=== PATIENT | female | born 1945 | race Caucasian/White ===

== ENCOUNTER 2017-02-21 18:26 | Inpatient (IN) | payer OTHER ==
[~2017-02-21] VITALS: Ht 165.1 cm; Wt 62.8 kg
[2017-02-21 19:29] LABS: BASOPHIL % 0.4 % (0-2); PLATELET COUNT 205 x10^3mcL (130-400); RED CELL DISTRIBUTION WIDTH 12.6 % (11.5-14.5)
[2017-02-21 19:36] LABS: CALCIUM 8.7 mg/dL (8.5-10.1); CARBON DIOXIDE 37.2 mmol/L (21-32); CHLORIDE SERUM 103 mmol/L (98-107); CREATININE SERUM 0.8 mg/dL (0.6-1.0); GLUCOSE SERUM 106 mg/dL (74-106); POTASSIUM SERUM 3.5 mmol/L (3.5-5.1); SODIUM SERUM 144 mmol/L (136-145)
[2017-02-21 19:41] LABS: ALKALINE PHOSPHATASE 86 U/L (46-116); ALT/SGPT 25 U/L (14-59); AST/SGOT 29 U/L (15-37); BILIRUBIN TOTAL 0.3 mg/dL (0.20-1.00); TOTAL PROTEIN, SERUM 7.3 g/dL (6.4-8.2)
[2017-02-21 19:43] LABS: ALBUMIN 2.7 g/dL (3.4-5.0)
[2017-02-21] MEDS ORDERED: CLARITIN10 MG PO (22:40)
[2017-02-21] MEDS ORDERED: PRISTIQ50 M1 PO (22:40)
[2017-02-21] MEDS ORDERED: FUROSEMIDE20 MG PO (22:40)
[2017-02-21] MEDS ORDERED: METHADONE HCL5 MG PO (22:41)
[2017-02-21] MEDS ORDERED: LORAZEPAM0.5 MG PO (22:41)
[2017-02-21] MEDS ORDERED: GOOD SENSE OMEP20 MG PO (22:41)
[2017-02-21] MEDS ORDERED: LYRICA75 M1 PO (22:41)
[2017-02-21] MEDS ORDERED: EVISTA60 MG PO (22:42)
[2017-02-21] MEDS ORDERED: RISPERIDONE1 MG PO (22:42)
[2017-02-21 22:57] LABS: CHOLESTEROL/HDL RATIO 2.9; MAGNESIUM 2.3 mg/dL (1.8-2.4); PHOSPHOROUS 3.1 mg/dL (2.5-4.9)
[2017-02-21 23:41] VITALS: BP 115/63
[2017-02-21 23:47] VITALS: Ht 165.1 cm; Wt 62.8 kg
[2017-02-21 23:52] VITALS: BP 115/63
[2017-02-22 05:59] LABS: CALCIUM 8.3 mg/dL (8.5-10.1); CARBON DIOXIDE 34.4 mmol/L (21-32); CHLORIDE SERUM 106 mmol/L (98-107); CREATININE SERUM 0.7 mg/dL (0.6-1.0); GLUCOSE SERUM 93 mg/dL (74-106); POTASSIUM SERUM 3.9 mmol/L (3.5-5.1); SODIUM SERUM 142 mmol/L (136-145)
[2017-02-22 06:53] LABS: BASOPHIL % 0.4 % (0-2); PLATELET COUNT 171 x10^3mcL (130-400); RED CELL DISTRIBUTION WIDTH 12.4 % (11.5-14.5)
[2017-02-22 07:03] LABS: microscopic required? NO
[2017-02-22 07:42] LABS: AMPHETAMINE QUAL UR NONE DETECTED (NEG <=1000)
[2017-02-22 08:00] LABS: UA SPECIFIC GRAVITY <=1.005 (1.005-1.035); urine erythrocyte NEGATIVE (NEGATIVE)
[2017-02-22 12:05] VITALS: BP 163/61
[2017-02-22 13:55] VITALS: BP 99/61
[2017-02-22 18:00] VITALS: BP 128/65
[2017-02-22 21:01] VITALS: BP 129/68
[2017-02-23 05:35] VITALS: BP 160/77
[2017-02-23 09:35] VITALS: BP 155/71
[2017-02-23 10:39] LABS: BASOPHIL % 0.3 % (0-2); PLATELET COUNT 192 x10^3mcL (130-400); RED CELL DISTRIBUTION WIDTH 12.3 % (11.5-14.5)
[2017-02-23 14:02] VITALS: BP 109/66
[2017-02-23 16:45] VITALS: BP 104/53
[2017-02-23 21:08] VITALS: BP 115/63
[2017-02-24 06:02] VITALS: BP 131/73
[2017-02-24 07:25] LABS: CALCIUM 8.6 mg/dL (8.5-10.1); CARBON DIOXIDE 33.6 mmol/L (21-32); CHLORIDE SERUM 106 mmol/L (98-107); CREATININE SERUM 0.8 mg/dL (0.6-1.0); GLUCOSE SERUM 93 mg/dL (74-106); POTASSIUM SERUM 3.5 mmol/L (3.5-5.1); SODIUM SERUM 144 mmol/L (136-145)
[2017-02-24 08:05] LABS: BASOPHIL % 0.4 % (0-2); PLATELET COUNT 173 x10^3mcL (130-400); RED CELL DISTRIBUTION WIDTH 12.8 % (11.5-14.5)
[2017-02-24 09:43] VITALS: BP 130/65
[2017-02-24 13:09] VITALS: BP 137/74
[2017-02-24 16:54] VITALS: BP 114/69
[2017-02-24 20:06] VITALS: BP 117/57
[2017-02-25 05:46] VITALS: BP 104/65
[2017-02-25 09:42] VITALS: BP 151/52
[2017-02-25 13:47] VITALS: BP 134/64
[2017-02-25] MEDS ORDERED: L20 PO (13:58)
[2017-02-25 17:26] VITALS: BP 134/64
[2017-02-25 17:33] VITALS: BP 111/70
== END 2017-02-25 21:02 | disposition hospice, home (50) | DRG 177 ==
LOC: ED 18:26 → DU 22:16
PROVIDERS: Emergency Medicine; ADMIT Student in an Organized Health Care Education/Training Program
DX: J69.0 Pneumonitis due to inhalation of food and vomit (principal); E43 Unspecified severe protein-calorie malnutrition; J96.21 Acute and chronic respiratory failure with hypoxia; E86.0 Dehydration; I10 Essential (primary) hypertension; F03.90 Unspecified dementia, unspecified severity, without behavioral disturbance, psychotic disturbance, mood disturbance, and anxiety; K21.9 Gastro-esophageal reflux disease without esophagitis; K44.9 Diaphragmatic hernia without obstruction or gangrene; R73.03 Prediabetes; M41.34 Thoracogenic scoliosis, thoracic region; G89.29 Other chronic pain; Z66 Do not resuscitate; Z68.24 Body mass index [BMI] 24.0-24.9, adult; Z79.891 Long term (current) use of opiate analgesic
CPT/HCPCS: 36600; 83880; 92610-GN; 94150; J0295; J2060; J2405; J2543; J3490; J7030; J7613; J7620; J7644; Q0092; Q9967